=== PATIENT | male | born 1990 | race Caucasian/White ===

== ENCOUNTER 2021-10-02 15:19 | Emergency (ER) | payer OTHER ==
[~2021-10-02] VITALS: Ht 170.2 cm; Wt 74.8 kg
[2021-10-02 15:23] VITALS: BP 110/75
--- NOTE | 2021-10-02 15:37 | NUR ---
PATIENT BIB [facility] [facility]. PATIENT EXAMINED BY PATRICK RAINEY. PATIENT MEDICALLY CLEARED AND RELEASED IN CUSTODY IN STABLE CONDITION. ORIGINAL PRE-BOOK FORM GIVEN TO OFFICER DILLON.
[2021-10-02 15:40] VITALS: BP 110/75
== END 2021-10-02 15:40 ==
LOC: MED 15:19
DX: F10.10 Alcohol abuse, uncomplicated (principal); Z02.89 Encounter for other administrative examinations; V89.2XXA Person injured in unspecified motor-vehicle accident, traffic, initial encounter; Y93.89 Activity, other specified; Y92.89 Other specified places as the place of occurrence of the external cause; Y99.8 Other external cause status
CPT/HCPCS: 99283